=== PATIENT | male | born 1955 | race Caucasian/White ===

== ENCOUNTER → 2020-06-19 | Outpatient (CLI) | payer OTHER | LOC: M.ULTRA 06-17 13:05 | PROVIDERS: ATTEND Family Medicine | DX: N43.3 Hydrocele, unspecified (principal); R19.09 Other intra-abdominal and pelvic swelling, mass and lump; K40.90 Unilateral inguinal hernia, without obstruction or gangrene, not specified as recurrent ==

== ENCOUNTER → 2020-07-17 | Day surgery (SDC) | payer OTHER ==
[~2020-07-17] MED LIST: ALLOPURINOL 10100 M3 PO; CHILDREN'S ASPI81 M1 PO; FOLIC ACID1 MG PO; HYDROXYCHLOROQ200 M1 PO; METHOTREXATE 22.5 M1 PO; NORCO5 PO
--- NOTE | ~2020-07-17 | PROC ---
[facility] [address] [place] [address] PROCEDURE REPORT Name: AMINAH RAMIREZ Room: [facility]#: [id number] Admission: 07/17/20 Attend Phys: Macario Bob Discharge: Date of : 51 Report #: [id number] THIS REPORT FOR: cc: Scarlett Hall Ahmad W. DO Patterson, Jonathan D. MD ~ DOC #: [id number] Macario Bob MD DATE OF PROCEDURE: 07/17/2020 PREOPERATIVE DIAGNOSIS: Incarcerated right inguinal hernia. POSTOPERATIVE DIAGNOSIS: Incarcerated right inguinal hernia. PROCEDURE: Laparoscopic repair of incarcerated right inguinal hernia with mesh. SURGEON: Macario Bob MD. ANESTHESIA: General. ESTIMATED BLOOD LOSS: Minimal. SPECIMEN: None. DESCRIPTION OF PROCEDURE: After informed consent was obtained, the patient was brought to the operating room and placed supine. SCDs were placed and working, preoperative antibiotics were administered, general anesthesia was induced. The abdomen was prepped and draped in the usual sterile fashion. This was done after a Lieberman catheter was placed. A 10 mm incision was made below the umbilicus. Fascia was incised and a trocar was placed. Pneumoperitoneum was established. Right and left-sided 5 mm trocars were placed under direct vision. The patient was placed in the Trendelenburg position. I was then able to reduce all of the hernia contents. There was a large hernia defect. There was small bowel, colon, and appendix in this. This is all reduced. I scored the peritoneum at the right ASIS. The peritoneum was then incised and reflected inferiorly. I was able to dissect out the large hernia sac. Cord structures were identified. Pubic bone was identified. An extra-large 3D Max midway mesh was inserted. It was tacked to Federico's ligament with 2 absorbable tacks. I then reapproximated the peritoneum with a tacker as well. The ports were removed under direct vision. The fascia at the umbilicus was closed with a [id number] 0 Vicryl. Skin was closed with 4-0 Monocryl. Incisions were sealed with Steri-Strips. COMPLICATIONS: [place] [address] PROCEDURE REPORT Name: AMINAH RAMIREZ Room: [facility]#: [id number] Admission: 07/17/20 Attend Phys: Macario Bob Discharge: Date of : 51 Report #: [id number] DISPOSITION: The patient was taken to recovery in satisfactory condition. MD MALAIKA Drew/NIS By: 1017 Chaz Bob MD /charbel
[2020-07-17 07:03] LABS: HEMATOCRIT 46.8 % (42.0-52.0); HEMOGLOBIN 15.5 gm/dL (14.0-18.0); MCH 33.1 pg (26.0-34.0); MCHC 33.1 g/dL (28.0-37.0); MCV 99.8 fL (80.0-100.0); RBC 4.69 mil/uL (4.50-6.00); WBC 12.8 thou/uL (4.0-11.0)
[2020-07-17 07:08] LABS: CALCIUM 9.6 mg/dL (8.5-10.1); CREATININE 0.9 mg/dL (0.6-1.3); POTASSIUM 4.2 mmol/L (3.5-5.1)
--- NOTE | 2020-07-20 10:29 | EKG ---
[place] [address] ELECTROCARDIOGRAM REPORT Name: AMINAH RAMIREZ Room: [facility]#: [id number] Admission: 07/17/20 Attend Phys: Macario Tolentino Discharge: Date of : 51 Date of Service: 07/17/20721 Report #: [id number] THIS REPORT FOR: //name// [facility] Test Date: 2020-07-17 Test Time: 07:22:11 Pat Name: AMINAH RAMIREZ Department: Room: Gender: [employer]er: : 1955 Requested By: Macario Bob Order Number: [id number] Reading MD: Humberto Jefferson Measurements Intervals [place] Rate: 82 P: 54 [place]: 154 QRS: 11 QRSD: 78 T: 72 QT: 402 QTc: 470 Interpretive Statements Sinus rhythm Ventricular premature complex Borderline T wave abnormalities No previous ECG available for comparison Electronically Signed On 07-20-2020 10:29:42 CDT by Humberto Jefferson [email or web address] <ELECTRONICALLY SIGNED> By: Humberto Jefferson MD, [facility] 07/20/20 1029 1 1 Humberto Jefferson MD, [facility] /EPI
== END | disposition home or self-care (01) ==
LOC: M.SUR 06:25
PROVIDERS: ATTEND Surgery
DX: K40.30 Unilateral inguinal hernia, with obstruction, without gangrene, not specified as recurrent (principal); Z98.890 Other specified postprocedural states; Z79.899 Other long term (current) drug therapy; Z88.0 Allergy status to penicillin